=== PATIENT | male | born 1965 | race Two or more races ===

== ENCOUNTER 2020-09-13 16:24 | Inpatient (IN) | payer OTHER ==
[~2020-09-13] VITALS: Ht 175.3 cm; Wt 204.1 kg
[2020-09-13] MEDS ORDERED: HYDRALAZINE HC100 MG (16:48)
[2020-09-13] MEDS ORDERED: CLINDAMYCIN HC300 MG (16:48)
[2020-09-13] MEDS ORDERED: DILTIAZEM 24HR180 MG (16:48)
[2020-09-13] MEDS ORDERED: VALSARTAN-HCTZ1 EAC3 (16:48)
[2020-09-13] MEDS ORDERED: METOPROLOL SUC200 MG (16:49)
[2020-09-14] MEDS ORDERED: MUPIROCIN22 GM (10:29)
[2020-09-14] MEDS ORDERED: OMEPRAZOLE40 MG (10:29)
[2020-09-14] MEDS ORDERED: CLOBETASOL EMOL15 GM (10:29)
== END 2020-10-03 07:33 | disposition expired | DRG 208 ==
LOC: ER 16:24 → MEDI 09-14 09:15 → ICU 09-14 09:15 → MEDI 09-14 11:15 → ICU 09-14 14:31
PROVIDERS: ADMIT Internal Medicine; ATTEND Internal Medicine
PROC: 5A09457 Assistance with Respiratory Ventilation, 24-96 Consecutive Hours, Continuous Positive Airway Pressure (ICD-10-PCS; 2020-09-14)
PROC: 05H533Z Insertion of Infusion Device into Right Subclavian Vein, Percutaneous Approach (ICD-10-PCS; 2020-09-14)
PROC: BV44ZZZ Ultrasonography of Scrotum (ICD-10-PCS; 2020-09-14)
PROC: 4A033R1 Measurement of Arterial Saturation, Peripheral, Percutaneous Approach (ICD-10-PCS; 2020-09-14)
PROC: B24BZZZ Ultrasonography of Heart with Aorta (ICD-10-PCS; 2020-09-15)
PROC: B54DZZZ Ultrasonography of Bilateral Lower Extremity Veins (ICD-10-PCS; 2020-09-16)
PROC: 5A1945Z Respiratory Ventilation, 24-96 Consecutive Hours (ICD-10-PCS; principal; 2020-10-02)
PROC: 0BH17EZ Insertion of Endotracheal Airway into Trachea, Via Natural or Artificial Opening (ICD-10-PCS; 2020-10-02)
DX: J96.92 Respiratory failure, unspecified with hypercapnia (principal); N39.0 Urinary tract infection, site not specified; L98.418 Non-pressure chronic ulcer of buttock with other specified severity; Z68.44 Body mass index [BMI] 60.0-69.9, adult; I50.30 Unspecified diastolic (congestive) heart failure; N48.1 Balanitis; J96.91 Respiratory failure, unspecified with hypoxia; E66.01 Morbid (severe) obesity due to excess calories; I11.0 Hypertensive heart disease with heart failure; I27.20 Pulmonary hypertension, unspecified; Z20.822 Contact with and (suspected) exposure to COVID-19; B96.4 Proteus (mirabilis) (morganii) as the cause of diseases classified elsewhere; I07.9 Rheumatic tricuspid valve disease, unspecified; Z53.29 Procedure and treatment not carried out because of patient's decision for other reasons